=== PATIENT | male | born 1945 | race Caucasian/White ===

== ENCOUNTER 2023-04-13 10:26 | Outpatient (RCR) | payer MEDICARE ==
[~2023-04-13 10:26] MED LIST: APPLE CIDER VI500 MG PO; AVODART0.5 MG PO; BREO ELLIPTA 11 EACH INH; CARVEDILOL3.125 MG PO; FLOMAX0.4 MG PO; GINKGO BILOBA E60 MG PO; GINKGO BILOBA40 M1; LIDOCAINE/PRILOCAINE 2.5-2.5% KIT ONE; METAMUCIL FIBE3.4 GM PO; MIRTAZAPINE15 MG PO; MULTI-VITAMIN1 EACH PO; OMEGA 3 1,0001 EACH PO; POTASSIUM CHLO10 ME1 PO; PROVENTIL HFA6.7 GM INH; TORSEMIDE10 MG PO; TORSEMIDE20 MG PO; VITAMIN B122500 MCG; VITAMIN C WITH500 MG PO; VITAMIN D3125 MCG/1; XARELTO10 MG PO; [UNRECOGNIZED DRUG - OTHER] PO; [UNRECOGNIZED DRUG - OTHER] PO; [UNRECOGNIZED DRUG - OTHER] PO; [UNRECOGNIZED DRUG - OTHER] PO; [UNRECOGNIZED DRUG - OTHER] PO; tumeric PO; tumeric curcumin PO
[2023-04-13] MEDS ORDERED: MINERAL OIL/PETROLAT/GLYCERI 6OZ BTL ONE (11:52)
== END 2023-04-28 ==
LOC: WCC 10:26
PROVIDERS: ATTEND Internal Medicine Infectious Disease
DX: I87.312 Chronic venous hypertension (idiopathic) with ulcer of left lower extremity (principal); L97.821 Non-pressure chronic ulcer of other part of left lower leg limited to breakdown of skin; R60.0 Localized edema